=== PATIENT | female | born 1995 | race Caucasian/White ===

== ENCOUNTER 2017-03-16 16:53 | Emergency (ER) | payer OTHER ==
[~2017-03-16 16:53] MED LIST: ERYTHROMYCIN O3.5 GM OD; FLEXERIL10 MG PO; NO MEDICATIONS; VICODIN 5/500 T1 TAB PO
[2017-03-16] MEDS ORDERED: ULTRAM (17:11)
== END 2017-03-16 18:38 | disposition home or self-care (01) ==
LOC: SED 16:53
DX: L03.115 Cellulitis of right lower limb (principal); Z88.0 Allergy status to penicillin
CPT/HCPCS: 99282